=== PATIENT | female | born 1950 | race Caucasian/White ===

== ENCOUNTER 2018-05-11 08:00 | Day surgery (SDC) | payer OTHER, MEDICARE ==
[2018-05-04 10:24] VITALS: BMI 23.6
[2018-05-11 08:34] VITALS: TEMP 98
[2018-05-11] MEDS ORDERED: PROPOFOL 20 ML ONE ×2 (09:18)
[2018-05-11] MEDS ORDERED: LIDOCAINE HCL/PF 2% SDV 5ML VIAL ONE (09:19)
[2018-05-11 10:39] VITALS: BP 104/56; PULSE 62
== END 2018-05-11 10:25 | disposition home or self-care (01) ==
LOC: FASU-ENDO 08:00
PROVIDERS: ATTEND Internal Medicine Gastroenterology
PROC: 0DJD8ZZ Inspection of Lower Intestinal Tract, Via Natural or Artificial Opening Endoscopic (ICD-10-PCS; principal; 2018-05-11 09:25)
DX: Z12.11 Encounter for screening for malignant neoplasm of colon (principal); K64.8 Other hemorrhoids